=== PATIENT | female | born 1980 | race Hispanic/Latino ===

== ENCOUNTER 2022-01-10 05:36 | Emergency (ER) | payer SELFPAY ==
[2022-01-10 06:07] LABS: Bilirubin Neg (Negative); Blood, Urine Negative (Negative); Clarity Slightly Cloudy (Clear); Glucose, Urine (Dipstick) Normal (Negative); Ketone, Urine Negative (Negative); Leukocyte Negative (Negative); Nitrite Negative (Negative); Protein, Urine (Dipstick) Negative (Neg-Trace); Urobilinogen Normal mg/dL (Less than 2)
[2022-01-10 06:45] LABS: #Basophils 0.1 10x3/uL (0.0-0.2); #Monocytes 0.5 10x3/uL (0.0-1.1); #Neutrophils 5.6 10x3/uL (1.5-8.4); %Basophils 0.6 % (0.0-2.0); %Eosinophils 0.1 % (0.0-6.0); %Monocytes 5.9 % (0.0-10.0); Mean Corpuscular HGB CONC 33.3 g/dL (32.0-36.0); Platelet Count 269 10x3/uL (150-450); RBC Distribution Width 13.4 % (11.5-14.5); Red Blood Cell (RBC) Count 3.55 10x6/uL (3.90-5.03); White Blood Cell (WBC) Count 8.2 10x3/uL (3.5-10.5)
[2022-01-11 11:25] LABS: Chlamydia by PCR Not Detected (NotDetected); GC by PCR Not Detected (NotDetected)
== END 2022-01-10 07:35 | disposition home or self-care (01) ==
LOC: CSHERS 05:36
DX: O20.9 Hemorrhage in early pregnancy, unspecified (principal); Z3A.17 17 weeks gestation of pregnancy
CPT/HCPCS: 36415; 76815; 81003; 85025; 86900; 86901; 87480; 87491; 87510; 87591; 87660

== ENCOUNTER 2022-06-06 19:27 | Inpatient (IN) | payer SELFPAY ==
[2022-06-06 19:58] VITALS: BMI 35.8
[2022-06-06] MEDS ORDERED: hydrALAZINE 20 MG/ML VIAL SLOW IVP PRN ×2 (21:12→22:15)
[2022-06-06 22:06] LABS: Fetal Membranes Rupture RUPTURE DETECTED (No Rupture)
[2022-06-06] MEDS ORDERED: Penicillin G Potassium 5 MILL.UNITS in Sodium Chloride 0.9% 100 ML IVPB SCH (22:15)
[2022-06-06] MEDS ORDERED: Lidocaine 1% (PF) 30 ML VIAL SC PRN (22:15)
[2022-06-06] MEDS ORDERED: Acetaminophen 500 MG TAB PO PRN (22:15)
[2022-06-06] MEDS ORDERED: NS w/ Oxytocin 30 units 500 ML IV SCH (22:15)
[2022-06-06] MEDS ORDERED: Methylergonovine 0.2 MG/ML VIAL IM PRN (22:15)
[2022-06-06] MEDS ORDERED: Diphenoxylate HCl/Atropine Tablet PO PRN (22:15)
[2022-06-06] MEDS ORDERED: Ondansetron PF 4 MG/2 ML Vial IVP PRN (22:15)
[2022-06-06] MEDS ORDERED: Misoprostol 200 MCG TAB PR PRN (22:15)
[2022-06-06] MEDS ORDERED: Carboprost 250 MCG/ML AMP IM PRN (22:15)
[2022-06-06] MEDS ORDERED: Promethazine HCl 25 MG/ML VIAL IM PRN (22:15)
[2022-06-06 22:23] LABS: #Monocytes 0.5 10x3/uL (0.0-1.1); #Neutrophils 4.5 10x3/uL (1.5-8.4); %Basophils 0.5 % (0.0-2.0); %Eosinophils 0.4 % (0.0-6.0); %Lymphocytes 38.5 % (18.0-47.0); %Monocytes 6.3 % (0.0-10.0); %Neutrophils 53.9 % (40.0-75.0); Hemoglobin 11.1 g/dL (12.0-15.5); Mean Corpuscular HGB CONC 33.2 g/dL (32.0-36.0); Mean Corpuscular Hemoglobin 30.4 pg (27.0-33.0); Mean Corpuscular Volume 91.5 fl (81.6-98.3); Mean Platelet Volume 11.8 fl (7.4-10.4); Platelet Count 234 10x3/uL (150-450); RBC Distribution Width 16.2 % (11.5-14.5); Red Blood Cell (RBC) Count 3.65 10x6/uL (3.90-5.03); White Blood Cell (WBC) Count 8.3 10x3/uL (3.5-10.5)
[2022-06-06 22:42] LABS: Creatinine, Urine 52.63 mg/dL (47-110); Protein, Urine Random Quant Less than 10 mg/dL (1-14)
[2022-06-06 22:50] LABS: ALT (SGPT) 12 U/L (8-55); AST (SGOT) 15 U/L (5-34); Albumin 3.3 g/dL (3.5-5.0); Alkaline Phosphatase 136 U/L (40-110); Anion Gap 13 mmol/L (10-20); BUN (Urea Nitrogen) 7 mg/dL (7.0-18.7); Bilirubin, Total 0.2 mg/dL (0.2-1.2); Calc. Creatinine Clearance 187 mL/min (70-130); Calcium 9.2 mg/dL (7.8-10.44); Carbon Dioxide 22 mmol/L (22-29); Chloride 106 mmol/L (98-107); Estimated GFR 114; Glucose 81 mg/dL (70-105); Protein, Total 6.3 g/dL (6.0-8.3); Sodium 137 mmol/L (136-145)
[2022-06-06 23:41] LABS: Syphilis Antibody Nonreactive (Nonreactive); Syphilis Antibody Index 0.03 S/CO (<1.00 Non-Reactive)
[2022-06-06 23:42] LABS: HBSAg Index 0.19 S/CO (0-0.99); Hep B Surf Ag Non-Reactive S/CO (NonReactive)
[2022-06-07 01:24] LABS: SARS-CoV-2 NAA Rapid Test Not Detected (NotDetected)
[2022-06-07] MEDS: Penicillin G 2.5 MILL.units 2.5 MILL.UNITS in Premix Bag 1 BAG IVPB SCH ×5 (03:00→18:14)
[2022-06-07] MEDS: Lactated Ringer's 1,000 ML IV SCH ×5 (07:06→21:25)
[2022-06-07] MEDS ORDERED: Fentanyl 2 mcg/Bup 0.1% Cadd 100 ML ONE (12:21)
[2022-06-07] MEDS ORDERED: Lactated Ringer's 500 ML IV PRN (13:04)
[2022-06-07] MEDS ORDERED: Promethazine HCl 25 MG/ML VIAL IM PRN ×2 (13:04→15:42)
[2022-06-07] MEDS ORDERED: Ondansetron PF 4 MG/2 ML Vial IVP PRN ×2 (13:04→15:42)
[2022-06-07] MEDS ORDERED: Moisturizing Cream (Eucerin) 113 GM JAR TOP PRN ×2 (13:04→15:42)
[2022-06-07] MEDS ORDERED: Acetaminophen 325 MG TAB PO PRN (13:04)
[2022-06-07] MEDS ORDERED: Naloxone HCl 0.4 mg/ml Vial IVP PRN ×4 (13:04→15:42)
[2022-06-07] MEDS ORDERED: ePHEDrine Sulfate 50 MG/10 ML VIAL SLOW IVP PRN (13:04)
[2022-06-07] MEDS ORDERED: diphenhydrAMINE 50 MG/ML VIAL IVP PRN ×2 (13:04→15:42)
[2022-06-07] MEDS ORDERED: Fentanyl 2 mcg/Bupivacaine 0.1% Cassette 100 ML EPIDURAL SCH (13:15)
[2022-06-07] MEDS ORDERED: Communication Order-Pharmacy FS SCH ×2 (13:15→15:45)
[2022-06-07] MEDS ORDERED: Fentanyl 100 MCG/2 ML VIAL ONE ×3 (13:32→15:19)
[2022-06-07] MEDS ORDERED: Bicitra 30 ML UDCUP PO PRN (14:18)
[2022-06-07] MEDS ORDERED: Famotidine/PF 20 mg/2ml Vial SLOW IVP PRN (14:18)
[2022-06-07] MEDS ORDERED: Azithromycin 500 MG VIAL ONE (14:21)
[2022-06-07] MEDS ORDERED: CEFAZOLIN 2 GM VIAL ONE (14:21)
[2022-06-07] MEDS ORDERED: Famotidine/PF 20 mg/2ml Vial ONE (14:21)
[2022-06-07] MEDS ORDERED: Oxytocin 10 UNITS/ML VIAL ONE ×2 (14:27→14:57)
[2022-06-07] MEDS ORDERED: Dexamethasone 4 mg/ml Vial ONE (14:27)
[2022-06-07] MEDS ORDERED: Ketamine 50 MG/ML (10ML VIAL) ONE (14:27)
[2022-06-07] MEDS ORDERED: Ondansetron PF 4 MG/2 ML Vial ONE (14:27)
[2022-06-07] MEDS ORDERED: CEFAZOLIN 2 GM in Sodium Chloride 0.9% 100 ML IVPB SCH (14:30)
[2022-06-07] MEDS ORDERED: Azithromycin 500 MG in Sodium Chloride 0.9% 250 ML 250 ML IVPB SCH (14:30)
[2022-06-07] MEDS ORDERED: Morphine PF 10 MG/10 ML VIAL ONE (15:06)
[2022-06-07] MEDS ORDERED: Midazolam HCl 2 mg/2 ml Vial ONE (15:21)
[2022-06-07] MEDS ORDERED: Simethicone Chewable 80 MG TAB PO PRN (15:30)
[2022-06-07] MEDS ORDERED: Lanolin Ointment 7 GM TUBE TOP PRN (15:30)
[2022-06-07] MEDS ORDERED: Fentanyl 100 MCG/2 ML VIAL SLOW IVP PRN (15:42)
[2022-06-07] MEDS ORDERED: Ketorolac Tromethamine 30 MG/ML VIAL IVP PRN (15:42)
[2022-06-07] MEDS ORDERED: Promethazine HCl 25 MG SUPP PR PRN (15:42)
[2022-06-07] MEDS ORDERED: Naloxone HCl 0.4 mg/ml Vial IV PRN (15:42)
[2022-06-07] MEDS ORDERED: Ondansetron HCl/PF 4 MG/2 ML Vial IVP PRN (15:42)
[2022-06-07] MEDS ORDERED: Meperidine HCl/PF 25 MG/ML VIAL SLOW IVP PRN (15:42)
[2022-06-07] MEDS ORDERED: Ketorolac Tromethamine 30 MG/ML VIAL IVP SCH (15:45)
[2022-06-07 16:01] LABS: Critical Notified Whom: BRAKA; RapidComm Collect By CBN
[2022-06-07 16:04] LABS: Critical Notified Whom: BRAKA; RapidComm Collect By CBN; pH (Cord, venous) 7.346 (7.250-7.350)
[2022-06-07] MEDS ORDERED: Bupivacaine HCl 0.5%/Epinephrine 1:200,000/PF 30 ml Vial ONE (18:47)
[2022-06-07] MEDS ORDERED: Bupivacaine/Epinephrine 0.25% 30 ML VIAL ONE (18:47)
[2022-06-07] MEDS ORDERED: Lidocaine 2% PF 5 ML VIAL ONE (18:47)
[2022-06-07] MEDS: Melatonin 3 MG TAB PO SCH (21:10)
[2022-06-07] MEDS: Simethicone Chewable 80 MG TAB PO SCH (21:10)
[2022-06-07] MEDS ORDERED: Simethicone Chewable 80 MG TAB PO SCH (23:59)
[2022-06-08] MEDS: Simethicone Chewable 80 MG TAB PO SCH ×4 (02:39→21:06)
[2022-06-08 03:58] LABS: Hemoglobin 8.8 g/dL (12.0-15.5); Mean Corpuscular HGB CONC 33.2 g/dL (32.0-36.0); Mean Corpuscular Hemoglobin 30.7 pg (27.0-33.0); Mean Corpuscular Volume 92.3 fl (81.6-98.3); Mean Platelet Volume 12.1 fl (7.4-10.4); Platelet Count 204 10x3/uL (150-450); RBC Distribution Width 16.1 % (11.5-14.5); Red Blood Cell (RBC) Count 2.87 10x6/uL (3.90-5.03); White Blood Cell (WBC) Count 11.9 10x3/uL (3.5-10.5)
[2022-06-08] MEDS: Lactated Ringer's 1,000 ML IV SCH ×3 (05:06→20:49)
[2022-06-08] MEDS: Prenatal Vitamin 1 TAB PO SCH (08:53)
[2022-06-08] MEDS ORDERED: HYDROcodone/Acetaminophen 5/325 mg Tablet PO PRN (11:43)
[2022-06-08] MEDS: HYDROcodone/Acetaminophen 5/325 mg Tablet PO PRN (21:06)
[2022-06-08] MEDS: Ibuprofen 800 MG TAB PO SCH (21:07)
[2022-06-08] MEDS: Melatonin 3 MG TAB PO SCH (21:36)
[2022-06-09] MEDS: Lactated Ringer's 1,000 ML IV SCH ×3 (03:05→23:52)
[2022-06-09] MEDS: Simethicone Chewable 80 MG TAB PO SCH ×4 (05:05→21:35)
[2022-06-09] MEDS: Ibuprofen 800 MG TAB PO SCH ×3 (05:05→21:35)
[2022-06-09] MEDS: HYDROcodone/Acetaminophen 5/325 mg Tablet PO PRN ×2 (05:05→14:51)
[2022-06-09 05:53] LABS: #Basophils 0.1 10x3/uL (0.0-0.2); #Monocytes 0.8 10x3/uL (0.0-1.1); #Neutrophils 7.3 10x3/uL (1.5-8.4); %Basophils 0.4 % (0.0-2.0); %Eosinophils 0.3 % (0.0-6.0); %Lymphocytes 30.8 % (18.0-47.0); %Monocytes 6.5 % (0.0-10.0); %Neutrophils 61.7 % (40.0-75.0); Hemoglobin 8.4 g/dL (12.0-15.5); Mean Corpuscular HGB CONC 33.3 g/dL (32.0-36.0); Mean Corpuscular Hemoglobin 30.9 pg (27.0-33.0); Mean Corpuscular Volume 92.6 fl (81.6-98.3); Mean Platelet Volume 11.8 fl (7.4-10.4); Platelet Count 208 10x3/uL (150-450); RBC Distribution Width 16.6 % (11.5-14.5); Red Blood Cell (RBC) Count 2.72 10x6/uL (3.90-5.03); White Blood Cell (WBC) Count 11.9 10x3/uL (3.5-10.5)
[2022-06-09] MEDS: Prenatal Vitamin 1 TAB PO SCH (08:34)
[2022-06-09] MEDS: Melatonin 3 MG TAB PO SCH (21:35)
[2022-06-10] MEDS: Ibuprofen 800 MG TAB PO SCH (05:31)
[2022-06-10] MEDS: Simethicone Chewable 80 MG TAB PO SCH ×2 (05:31→10:47)
[2022-06-10] MEDS: HYDROcodone/Acetaminophen 5/325 mg Tablet PO PRN (05:34)
[2022-06-10] MEDS: Lactated Ringer's 1,000 ML IV SCH (06:14)
[2022-06-10 08:31] VITALS: TEMP 98.1
[2022-06-10] MEDS: Prenatal Vitamin 1 TAB PO SCH (08:41)
[2022-06-10 12:31] VITALS: BP 132/82
== END 2022-06-10 12:58 | disposition home or self-care (01) | DRG 788 ==
LOC: CSHLD/OP 19:27 → CSHLD 06-07 01:22 → CSHPP 06-07 17:51
PROVIDERS: ADMIT Obstetrics & Gynecology; ATTEND Obstetrics & Gynecology
PROC: 10D00Z1 Extraction of Products of Conception, Low, Open Approach (ICD-10-PCS; principal; 2022-06-07)
DX: O99.824 Streptococcus B carrier state complicating childbirth (principal); Z3A.37 37 weeks gestation of pregnancy; Z37.0 Single live birth; Z20.822 Contact with and (suspected) exposure to COVID-19; F41.9 Anxiety disorder, unspecified; O99.344 Other mental disorders complicating childbirth; O42.02 Full-term premature rupture of membranes, onset of labor within 24 hours of rupture; O76 Abnormality in fetal heart rate and rhythm complicating labor and delivery; O32.8XX0 Maternal care for other malpresentation of fetus, not applicable or unspecified; O69.81X0 Labor and delivery complicated by cord around neck, without compression, not applicable or unspecified
CPT/HCPCS: 36415; 51702; 80053; 82570; 82805; 84112; 84156; 85025; 85027; 86780; 86850; 86900; 86901; 87340; 87480; 87510; 87660; 99285; J0595; J0690; J1100; J1885; J2001; J2250; J2274; J2405; J2540; J2590; J3010; J3490; J7120; S0028; U0002